=== PATIENT | male | born 1970 | race Caucasian/White ===

== ENCOUNTER 2022-01-27 02:02 | Inpatient (IN) ==
[2022-01-27] MEDS ORDERED: MORPHINE 2 MG/1 ML SYRINGE IV STA ×3 (02:11→02:35)
[2022-01-27] MEDS ORDERED: HEPARIN 1,000 UNIT/1 ML VIAL IV STA (02:11)
[2022-01-27] MEDS ORDERED: ONDANSETRON 4 MG/2 ML VIAL IV STA (02:11)
[2022-01-27] MEDS ORDERED: hydrALAZINE 20 MG/1 ML VIAL IV STA (02:11)
[2022-01-27] MEDS ORDERED: TICAGRELOR 90 MG TABLET PO STA (02:11)
[2022-01-27] MEDS ORDERED: ASPIRIN 325 MG TABLET PO STA (02:11)
[2022-01-27] MEDS ORDERED: NITROGLYCERIN 2% OINT 1 INCH/GM PACK TOP STA (02:11)
[2022-01-27] MEDS ORDERED: MORPHINE 2 MG/1 ML SYRINGE ONE (02:18)
[2022-01-27] MEDS ORDERED: HEPARIN 5,000 UNIT/1 ML VIAL ONE ×2 (02:19→02:46)
[2022-01-27 02:23] LABS: Basophils # 0.1 10*3/uL (0.0-0.2); Basophils % 0.8 % (0.0-0.8); Eosinophils # 0.8 10*3/uL (0.0-0.87); Eosinophils % 4.1 % (0.00-10.9); Hematocrit 39.9 VOL% (42.0-52.0); Hemoglobin 12.7 GM/DL (14.0-18.0); Immature Granulocytes % 0.5 %; Immature Granulocytes Absolute 0.09 #; Lymphocytes # 4.6 10*3/uL (1.4-4.0); Lymphocytes % 25.3 % (21.2-54.2); Mean Corpuscular HGB Conc 31.8 GM/DL (32-36); Mean Corpuscular Volume 99.3 FL (87-102); Mean Platelet Volume 10.6 FL (9.6-12.0); Monocytes % 8.4 % (1.7-12.7); Neutrophils % 60.9 % (38.7-73.9); Platelet Count 385 T/CUMM (130-400); Red Blood Count 4.02 MC/CUMM (3.8-5.5); Red Cell Distribution Width 14.6 % (9.3-17.3); White Blood Count 18.3 T/CUMM (4-12)
[2022-01-27] MEDS ORDERED: NITROGLYCERIN DRIP 50 MG/250 ML BOTTLE IV ONE (02:26)
[2022-01-27] MEDS ORDERED: NITROGLYCERIN DRIP 50 MG/250 ML BOTTLE IV PRN (02:26)
[2022-01-27 02:30] LABS: INR 0.9; PT Patient Result 10.4 SECS (10.5-12.0)
[2022-01-27] MEDS ORDERED: HYDROmorphone 1 MG/1 ML SYRINGE IV ONE (02:35)
[2022-01-27] MEDS ORDERED: MIDAZOLAM 2 MG/2 ML VIAL ONE (02:46)
[2022-01-27] MEDS ORDERED: fentaNYL 100 MCG/2 ML VIAL ONE (02:46)
[2022-01-27] MEDS ORDERED: ATROPINE 1 MG/10 ML SYRINGE ONE (03:05)
[2022-01-27] MEDS ORDERED: EPTIFIBATIDE 20,000 MCG/10 ML VIAL ONE (03:08)
[2022-01-27] MEDS ORDERED: EPTIFIBATIDE 75 MG/100 ML BOTTLE IV ONE (03:19)
[2022-01-27] MEDS ORDERED: EPTIFIBATIDE 75 MG/100 ML BOTTLE IV SCH (04:00)
[2022-01-27 04:21] LABS: Basophils # 0.1 10*3/uL (0.0-0.2); Basophils % 0.8 % (0.0-0.8); Eosinophils # 0.2 10*3/uL (0.0-0.87); Hematocrit 37.2 VOL% (42.0-52.0); Hemoglobin 11.1 GM/DL (14.0-18.0); Immature Granulocytes % 0.7 %; Immature Granulocytes Absolute 0.11 #; Lymphocytes # 1.4 10*3/uL (1.4-4.0); Lymphocytes % 9.1 % (21.2-54.2); Mean Corpuscular HGB Conc 29.8 GM/DL (32-36); Mean Corpuscular Volume 101.9 FL (87-102); Mean Platelet Volume 10.3 FL (9.6-12.0); Monocytes % 7.4 % (1.7-12.7); Platelet Count 320 T/CUMM (130-400); Red Blood Count 3.65 MC/CUMM (3.8-5.5); Red Cell Distribution Width 14.6 % (9.3-17.3); White Blood Count 15.7 T/CUMM (4-12)
[2022-01-27] MEDS ORDERED: MORPHINE 2 MG/1 ML SYRINGE IV PRN (05:11)
[2022-01-27 05:12] LABS: Calcium 7.7 MG/DL (8.5-10.1); Osmolality,Calculated 284.7 MOS/KG (273-304); Potassium 3.8 MMOL/L (3.5-5.1)
[2022-01-27 05:17] LABS: Alanine Aminotransferase 26 U/L (16-61); Albumin 1.8 G/DL (3.4-5.0); Alkaline Phosphatase 91 U/L (45-117); Aspartate Amino Transferase 27 U/L (0-37); Bilirubin,Total < 0.39 MG/DL (0.20-1.00); Blood Urea Nitrogen 39 MG/DL (7-18); Calcium 8.3 MG/DL (8.5-10.1); Carbon Dioxide 28 MMOL/L (21-32); Estimated Glom Filtration Rate 8 ML/MIN; Glucose 111 MG/DL (74-106); Osmolality,Calculated 288.4 MOS/KG (273-304); Potassium 3.8 MMOL/L (3.5-5.1); Sodium 140 MMOL/L (136-145); Total Protein 5.7 G/DL (6.4-8.2)
[2022-01-27 07:09] VITALS: BP 160/94
[2022-01-27] MEDS ORDERED: carvediloL 3.125 MG TABLET PO SCH ×2 (09:00→21:00)
[2022-01-27] MEDS: ASPIRIN EC 81 MG TABLET PO SCH (09:00)
[2022-01-27] MEDS ORDERED: carvediloL 3.125 MG TABLET PO ONE (11:07)
[2022-01-27] MEDS ORDERED: hydrALAZINE 20 MG/1 ML VIAL IV PRN (11:08)
[2022-01-27] MEDS: minoxidiL 2.5 MG TABLET PO SCH ×2 (11:48→21:18)
[2022-01-27] MEDS: TICAGRELOR 90 MG TABLET PO SCH (21:19)
[2022-01-27] MEDS: ATORVASTATIN 40 MG TABLET PO SCH (21:19)
[2022-01-28 07:59] LABS: Basophils # 0.1 10*3/uL (0.0-0.2); Basophils % 0.8 % (0.0-0.8); Eosinophils # 0.7 10*3/uL (0.0-0.87); Eosinophils % 4.9 % (0.00-10.9); Hematocrit 37.5 VOL% (42.0-52.0); Hemoglobin 11.8 GM/DL (14.0-18.0); Immature Granulocytes % 0.4 %; Immature Granulocytes Absolute 0.06 #; Lymphocytes # 3.4 10*3/uL (1.4-4.0); Lymphocytes % 25.1 % (21.2-54.2); Mean Corpuscular HGB Conc 31.5 GM/DL (32-36); Mean Corpuscular Volume 101.1 FL (87-102); Mean Platelet Volume 10.1 FL (9.6-12.0); Monocytes % 9.3 % (1.7-12.7); Neutrophils % 59.5 % (38.7-73.9); Platelet Count 409 T/CUMM (130-400); Red Blood Count 3.71 MC/CUMM (3.8-5.5); Red Cell Distribution Width 15.3 % (9.3-17.3); White Blood Count 13.4 T/CUMM (4-12)
[2022-01-28 08:27] LABS: Calcium 8.4 MG/DL (8.5-10.1); Osmolality,Calculated 288.5 MOS/KG (273-304)
[2022-01-28] MEDS ORDERED: TICAGRELOR 90 MG TABLET PO SCH (09:00)
[2022-01-28] MEDS ORDERED: ASPIRIN EC 81 MG TABLET PO SCH (09:00)
[2022-01-28] MEDS: buPROPion SR 150 MG TABLET PO SCH (09:08)
[2022-01-28] MEDS: TICAGRELOR 90 MG TABLET PO SCH ×2 (09:08→20:18)
[2022-01-28] MEDS: ASPIRIN EC 81 MG TABLET PO SCH (09:08)
[2022-01-28] MEDS: LOSARTAN 25 MG TABLET PO SCH (09:08)
[2022-01-28] MEDS: carvediloL 12.5 MG TABLET PO SCH ×2 (09:08→20:18)
[2022-01-28 12:08] LABS: Hepatitis B Surface Ag Quant 0.56 Index; Hepatitis B Surface Ag Result Non-Reactive (NonReactive)
[2022-01-28] MEDS ORDERED: HEPARIN 10,000 UNIT/10 ML VIAL IV SCH (14:00)
[2022-01-28] MEDS: ATORVASTATIN 40 MG TABLET PO SCH (20:18)
[2022-01-29 04:40] LABS: Basophils # 0.1 10*3/uL (0.0-0.2); Basophils % 0.8 % (0.0-0.8); Eosinophils # 0.6 10*3/uL (0.0-0.87); Eosinophils % 5.9 % (0.00-10.9); Hematocrit 35.4 VOL% (42.0-52.0); Hemoglobin 11.1 GM/DL (14.0-18.0); Immature Granulocytes % 0.3 %; Immature Granulocytes Absolute 0.03 #; Lymphocytes % 28.1 % (21.2-54.2); Mean Corpuscular HGB Conc 31.4 GM/DL (32-36); Mean Corpuscular Volume 99.7 FL (87-102); Mean Platelet Volume 10.4 FL (9.6-12.0); Neutrophils % 52.9 % (38.7-73.9); Platelet Count 367 T/CUMM (130-400); Red Blood Count 3.55 MC/CUMM (3.8-5.5); Red Cell Distribution Width 15.2 % (9.3-17.3); White Blood Count 10.7 T/CUMM (4-12)
[2022-01-29 04:53] LABS: Calcium 8.1 MG/DL (8.5-10.1); Osmolality,Calculated 288.1 MOS/KG (273-304)
[2022-01-29] MEDS: buPROPion SR 150 MG TABLET PO SCH (09:08)
[2022-01-29] MEDS: TICAGRELOR 90 MG TABLET PO SCH (09:08)
[2022-01-29] MEDS: carvediloL 12.5 MG TABLET PO SCH (09:09)
[2022-01-29] MEDS: ASPIRIN EC 81 MG TABLET PO SCH (09:09)
[2022-01-29] MEDS: LOSARTAN 25 MG TABLET PO SCH (09:09)
[2022-01-29] MEDS ORDERED: carvediloL 25 MG TABLET PO SCH (21:00)
== END 2022-01-29 14:50 | disposition home or self-care (01) | DRG 246 ==
LOC: EDBD → EDUNIT# → N.ED 02:02 → N.ICU 02:45 → N.EDINP 03:39 → N.ICU 03:42
PROVIDERS: ADMIT Internal Medicine Cardiovascular Disease; ATTEND Internal Medicine Cardiovascular Disease
PROC: CLCCHCL (ICD-10-PCS; 2022-01-27 03:00)